=== PATIENT | male | born 1950 | race Caucasian/White ===

== ENCOUNTER 2017-08-26 11:13 | Emergency (ER) | payer MEDICARE, OTHER ==
[~2017-08-26] VITALS: Ht 182.9 cm; Wt 86.2 kg
[~2017-08-26 11:13] MED LIST: ACET-2267 PO; ASCO500C14; BENZ200C51 PO; CEFD300C3 PO; DOCU100T7; DOXY100C2 PO; FLAX340P; L.AC1CAP6 PO; LTN005OP2; PHEN95TA30; POLY15DR14 OU; VITA100C15
--- OUTSIDE RECORDS SUMMARY | 2017-08-26 11:24 | XMS REPORT | Clinical Summary ---
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 If you do not see the information that you expected, contact Release of Information in the Health Information Management department at [phone] for further assistance in locating additional records.[facility] Allergies Active Allergy Reactions Severity Noted Date Comments Egg EDEMA 08/05/2012 Fish Containing Products EDEMA 08/05/2012 Meperidine NAUSEA AND VOMITING High 08/08/2012 Milk SHORTNESS OF BREATH 08/05/2012 Unclassified Drug SEE COMMENTS, EDEMA Medium 07/19/2015 Aspertame causing swelling RED BEANS--THROAT SWELLING Oxycodone NAUSEA AND VOMITING Low 08/24/2015 Peanut EDEMA Medium 08/05/2012 Current Medications Prescription Sig. Disp. Refills Start End Date Status Date artificial Place 1 Drop into or Active tears/hypromellose around eye(s) as Needed. (ISOPTO TEARS) 0.5 % ophthalmic solution acetaminophen (TYLENOL) Take 1,000 mg by mouth as Active 500 mg tablet Needed. azithromycin (ZITHROMAX) Take 250 mg by mouth Active 250 mg tablet daily. Take 2 tabs by mouth on day 1, followed by 1 tab by mouth daily on days 2 - 5. Active Problems Problem Noted Date Screening for colon cancer 11/12/2016 Overview: Patient with family history of colon cancer. No recent colonscopy. L ast Assessment & Plan: Will refer to GI for colonoscopy. Allergy to food 01/13/2016 Overview: Onset in childhood to milk, egg, fish, shell fish, nuts, peanuts, red or white beans, artificial colors, sweeteners and flavors in the food. Swelling right side of face, swelling lips, tongue, lumps in throat, soreness, tightness, nasal congestion and in extreme cases shortness of breath Spontaneous resolution He has never used epinephrine For last few months unable to tolerate milk and eggs even in baked form SPT to foods today positive to egg white, fish mix, peanut, shell fish mix, brazil nut, cashew, hazelnut, pecan, pistachio and walnut Will continue to avoid all above foods and also cow's milk and almond (SPT -ve to these) Will order IgE ImmunoCAP to egg white, cow's milk, peanut, cod, tilapia, salmon, brazil nut, cashew, hazelnut, pecan, pistachio and walnut If IgE testing negative to cow's milk or almond, will proceed with oral food challenge in future Epi-pen prescribed and instructions given on use Hx of sx right parotid gland cyst in 1998 and feels it gets swollen with exposure to food, recommend he sees an ENT physician to assess for possible occlusion of salivary gland causing swelling as it does not appear to be an allergic manifestation. Seasonal allergic rhinitis due to pollen 01/13/2016 Overview: Seasonal, spring and fall SPT several decades ago with pollen allergies, also cats, dogs and horses Cannot tolerate anti-histamines (drowsiness) Gets either steroid shots or oral steroids by PCP in spring Intra-nasal steroids did not help in the past SPT to aeroallergen today positive to tree, grass, weed, mold, dust mite, dog and cat Will test IgE ImmunoCAP to horse Provided instructions on aero-allergen avoidance Pt to use flonase 2 sprays each nostril daily when symptomatic in spring/fall. History of asthma 01/13/2016 Overview: Mild intermittent based on hx Onset childhood, reports aeroallergen (specifically cats and horse exposure) or food induced symptoms Used albuterol in 2004 for short duration Good exercise tolerance Spirometry today with no obstructive disease, continue to monitor for now. 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 Will continue to monitor. 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 3 PPD. 11/18/15: coaptite injection 03/13/16: Back to 3 ppd with activity 03/23/16: coaptite ijection 05/01/16: Good results. Only one light pad per day 07/31/16: increasing incontinence, 1 heavy pad/day 11/02/16: Kegels while squatting showed good improvement. Down to one light pad per day at most. Very pleased L ast Assessment & Plan: Continue to perform Kegel exercises. Prostate cancer ([facility]) 08/05/2012 Overview: Formatting of this note may be different from the original. 05/20/12 PSA 5.78. In late 2011 it was 6.4 and it was 4.75 in 09/2010 Dr. Dickson TRUS Bx 06/25/12 Arina 3+4=7 in 5/14 cores (all left side), 50% tissue involved in one core. RALP with bilateral nerve sparing and bilateral lymph node dissection on 08/13/12 (Dr. Mariscal) Final pathology: Final Diagnosis: A. Lymph nodes, "right side pelvic lymph nodes", radical resection: Negative for malignancy in five lymph nodes (0/5). B. Lymph nodes, "left side pelvic lymph nodes", radical resection: Negative for malignancy in three lymph nodes (0/3). C. Prostate, prostatectomy: Prostatic adenocarcinoma, Arina grade 3 + 4 (Score=7), involving approximately 15% of the total tissue. See cancer case summary. Patient did have positive surgical margins. [facility] PSA Hx: Lab Results Component Value Date PSA 0.05 05/24/2017 PSA 0.06 11/02/2016 PSA 0.05 07/31/2016 PSA 0.03 03/13/2016 PSA 0.04 12/13/2015 PSA 0.04 07/19/2015 PSA 0.03 01/18/2015 PSA 0.02 07/20/2014 PSA 0.01 01/05/2014 PSA <0.01 07/07/2013 PSA <0.01 03/31/2013 PSA <0.01 12/30/2012 PSA <0.01 09/26/2012 L ast Assessment & Plan: RTC in 6mos with PSA Resolved Problems Problem Noted Date Resolved Date Alvares catheter status 08/19/2012 09/26/2012 Overview: RALP 08/13/12 Called complaining catheter not draining on morning of 08/19. L ast Assessment & Plan: 1. Catheter functioning normally. Patient needed reassurance only. 2. Flushed with 60cc, immediate return and drainage of clear urine. 3. RTC on for catheter removal. Family History Medical History Relation Name Comments Cancer Father Lung Back pain Other Cancer Other Lung and Prostate Diabetes Other Heart Disease Other Lung Disease Other Neck Pain Other Osteoporosis Other Relation Name Status Comments Father (Age 95) Mother (Age 92) Other Social History Tobacco Use Types Packs/Day Years Used Date Former Smoker 1 Smokeless Tobacco: Never Used Tobacco Cessation: Counseling Given: No Alcohol Use Drinks/Week oz/Week Comments Yes 1 Cans of 0.6 once weekly beer Sex Assigned at Date Recorded Not on file Last Filed Vital Signs Vital Sign Reading Time Taken Blood Pressure 123/56 05/24/2017 1:04 PM [employer]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 [employer] Pulse 79 05/24/2017 1:04 PM [employer] Temperature 36.3 C (97.3 F) 12/11/2016 1:20 PM CDT Respiratory Rate 14 01/20/2016 2:52 PM CDT Oxygen Saturation 100% 12/11/2016 1:20 PM CDT Inhaled Oxygen - - Concentration Weight 84.5 kg (186 lb 3.2 oz) 05/24/2017 1:04 PM [employer] Height 185.4 cm (6' 1") 05/24/2017 1:04 PM [employer]NA[employer] Body Mass Index 24.57 05/24/2017 1:04 PM [employer] Plan of Treatment Health Maintenance Due Date Last Done Comments HEPATITIS C SCREENING 1950 PHYSICAL (COMPREHENSIVE) 01/04/1956 EXAM PERTUSSIS VACCINE 01/04/1960 TETANUS VACCINE 1966 SHINGLES VACCINE 2009 ABDOMINAL AORTIC ANEURYSM 2014 SCREENING PREVNAR/PNEUMOVAX (#1) 2014 INFLUENZA VACCINE 01/21/2018 COLORECTAL CANCER 12/11/2026 12/11/2016, 12/11/2016 SCREENING Implants Implanted Type Area Relationship Consultant Device Expiration Model / Identifier Date Serial / Lot Scr Bn 4mm 1.5mm Matrixneuro SYNTHES:SYNTHES [id number] Implanted: Qty: 5 on 08/30/2015 by [place] .01 / Andrew Mak MD [id number] / [id number] Screw Bn Mtrxnro 5x1.5 Cmf Right: DEPUY [id number] Implanted: Qty: 1 on 08/30/2015 by Other (see . / Andrew Mak MD comment) [id number] / [id number] Gft Sft Tis 3x1in Drgn + Crnl Right: [employer] [id number] / Implanted: Qty: 1 on 08/30/2015 by Other (see LIFESCI:NEURO [id number] / Andrew Mak MD comment) [id number] [facility] [place] 24mm SYNTHES:SYNTHES 503.024 Implanted: Qty: 2 on 08/30/2015 by [facility] / Andrew Mak MD NA / NA Implant Injectable 1ml Coaptite N/A: [employer] 04/28/2018 890-300 / Syringe Bulking Agent Stress Bladder [id number] Implanted: Qty: 1 on 11/18/2015 by Azeem Bolanos MD [id number] Implant Injectable 1ml Coaptite N/A: [employer] 06/09/2018 890-300 / Syringe Bulking Agent Stress Bladder [id number] Implanted: Qty: 1 on 11/18/2015 by Azeem Bolanos MD [id number] Implant Injectable 1ml Coaptite N/A: [employer] 06/09/2018 890-300 / Syringe Bulking Agent Stress Bladder [id number] Implanted: Qty: 1 on 11/18/2015 by Azeem Bolanos MD [id number] Implant Injectable 1ml Coaptite N/A: [employer] 10/20/2016 890-300 / Syringe Bulking Agent Stress Bladder 890-300 / Implanted: Qty: 1 on 11/18/2015 by [id number] Azeem Mariscal MD Implant Injectable 1ml Coaptite [employer] 11/23/2018 [id number] Syringe Bulking Agent Stress 0 / Implanted: Qty: 1 on 03/23/2016 by Azeem Philippe MD [id number] Implant Injectable 1ml Coaptite [employer] 06/28/2018 [id number] Syringe Bulking Agent Stress 0 / Implanted: Qty: 1 on 03/23/2016 by Azeem Philippe MD [id number] Implant Injectable 1ml Coaptite [place] 11/23/2018 [id number] Syringe Bulking Agent Stress 0 / Implanted: Qty: 1 on 03/23/2016 by Azeem Philippe MD [id number] Results Not on filefrom Last 3 Months
--- OUTSIDE RECORDS SUMMARY | 2017-08-26 11:24 | XMS REPORT | Continuity of Care Document ---
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 Name Role Phone [employer] Unavailable Unavailable Problems Medications Allergies, Adverse Reactions, Alerts Immunizations Results Vital Signs Encounters Location Location Details Encounter Type Encounter Number Reason For Visit Attending Provider ADM Date DC Date Status Source OUTPATIENT [id number] SHEREE HERNANDEZ 11/02/20162016 Active [facility] OP SURGERY [id number] JAIRO KARIMI 12/11/2016 12/11/2016 Active [facility] OUTPATIENT [id number] SHEREE HERNANDEZ 05/24/20172017 Active [facility] OUTPATIENT [id number] 08/21/2017 Active [facility] O Active [facility] Procedures Plan of Care Social History Assessment and Plan Family History Advance Directives Functional Status
--- OUTSIDE RECORDS SUMMARY | 2017-08-26 11:24 | XMS REPORT | Continuity of Care Document ---
Author Author [facility] Organization [facility] Address Unknown Phone Unavailable Allergies Active Description Code Type Severity Reaction Onset Reported/Identified Relationship to Patient Clinical Status Yes aspirin [id number] Drug Allergy Unknown N/A 06/30/2009 Yes hydrocodone [id number] Drug Allergy Unknown N/A 06/30/2009 Yes codeine [id number] Drug Allergy Unknown N/A 09/16/2009 Yes codeine [id number] Drug Allergy Unknown STOMACH UPSET 05/28/2017 Yes aspartame [id number] Drug Allergy Mild N/A 05/29/2017 Yes uribe [id number] Drug Allergy Mild N/A 05/29/2017 Yes blue dye [id number] Drug Allergy Mild N/A 05/29/2017 Yes egg [id number] Drug Allergy Mild N/A 05/29/2017 Yes Fish Containing Products [id number] Drug Allergy Mild N/A 05/29/2017 Yes milk [id number] Drug Allergy Mild N/A 05/29/2017 Yes nut - unspecified [id number] Drug Allergy Mild N/A 05/29/2017 Yes saccharin [id number] Drug Allergy Mild N/A 05/29/2017 Yes sucralose [id number] Drug Allergy Mild N/A 05/29/2017 Yes yellow dye [id number] Drug Allergy Mild N/A 05/29/2017 Yes red dye [id number] Drug Allergy Unknown N/A 05/29/2017 Medications There is no data. Problems Date Dx Coded Attending Type Code Diagnosis Diagnosed By 11/09/2007 Ot 327.23 02/01/2008 Ot 327.23 06/15/2014 Ot 455.0 06/15/2014 Ot 455.3 06/15/2014 Ot V72.63 06/15/2014 Ot V74.8 06/15/2014 Ot 455.0 06/15/2014 Ot 455.3 06/15/2014 Ot 453.81 06/18/2014 Ot 786.7 08/10/2014 Ot 455.0 08/10/2014 Ot 455.3 08/10/2014 Ot V72.63 08/10/2014 Ot V74.8 08/10/2014 Ot 455.0 08/10/2014 Ot 455.3 08/10/2014 Ot 453.81 08/10/2014 Ot 786.7 09/11/2014 Ot 786.7 10/27/2014 Ot 455.0 10/27/2014 Ot 455.3 10/27/2014 Ot V72.63 10/27/2014 Ot V74.8 10/27/2014 Ot 455.0 10/27/2014 Ot 455.3 10/27/2014 Ot 453.81 10/27/2014 Ot 786.7 12/29/2014 RENAN SIDDIQI, STEPHEN R Ot 721.2 12/29/2014 RENAN SIDDIQI, STEPHEN R Ot 721.3 12/29/2014 RENAN SIDDIQI, STEPHEN R Ot 721.2 12/29/2014 RENAN SIDDIQI, STEPHEN R Ot 721.3 12/29/2014 RENAN SIDDIQI, STEPHEN R Ot 721.2 12/29/2014 RENAN SIDDIQI, STEPHEN R Ot 721.3 02/02/2015 RENAN SIDDIQI, STEPHEN R Ot 721.2 02/02/2015 RENAN SIDDIQI, STEPHEN R Ot 721.3 04/29/2015 Ot 784.2 04/29/2015 Ot 455.0 04/29/2015 Ot 455.3 04/29/2015 Ot V72.63 04/29/2015 Ot V74.8 04/29/2015 Ot 455.0 04/29/2015 Ot 455.3 04/29/2015 Ot 789.09 04/29/2015 Ot 453.81 04/29/2015 Ot 786.7 04/29/2015 RENAN SIDDIQI, STEPHEN R Ot 721.2 04/29/2015 RENAN SIDDIQI, STEPHEN R Ot 721.3 04/29/2015 RENAN SIDDIQI, STEPHEN R Ot 721.2 04/29/2015 RENAN SIDDIQI, STEPHEN R Ot 721.3 05/28/2017 RENAN SIDDIQI, STEPHEN R Ot 721.2 THORACIC SPONDYLOSIS 05/28/2017 RENAN SIDDIQI, STEPHEN R Ot 721.3 LUMBOSACRAL SPONDYLOSIS 05/29/2017 LANIE ANDREW MD, Ot J18.9 PNEUMONIA, UNSPECIFIED ORGANISM 05/29/2017 LANIE ANDREW MD, Ot J45.909 UNSPECIFIED ASTHMA, UNCOMPLICATED 05/29/2017 LANIE ANDREW MD, Ot K21.9 GASTRO-ESOPHAGEAL REFLUX DISEASE WITHOUT 05/29/2017 LANIE ANDREW MD, Ot Z85.46 PERSONAL HISTORY OF MALIGNANT NEOPLASM O 05/29/2017 LANIE ANDREW MD, Ot Z90.79 ACQUIRED ABSENCE OF OTHER GENITAL ORGAN( 05/31/2017 LANIE ANDREW MD, Ot A40.3 SEPSIS DUE TO STREPTOCOCCUS PNEUMONIAE 05/31/2017 LANIE ANDREW MD, Ot J13 PNEUMONIA DUE TO STREPTOCOCCUS PNEUMONIA 05/31/2017 LANIE ANDREW MD, Ot J45.909 UNSPECIFIED ASTHMA, UNCOMPLICATED 05/31/2017 LANIE ANDREW MD, Ot K21.9 GASTRO-ESOPHAGEAL REFLUX DISEASE WITHOUT 05/31/2017 LANIE ANDREW MD, Ot R73.9 HYPERGLYCEMIA, UNSPECIFIED 05/31/2017 LANIE ANDREW MD, Ot Z85.46 PERSONAL HISTORY OF MALIGNANT NEOPLASM O 05/31/2017 LANIE ANDREW MD, Ot Z90.79 ACQUIRED ABSENCE OF OTHER GENITAL ORGAN( Procedures There is no data. Results Test Result Range Blood CBC with ordered manual differential panel - 05/28/17 14:57 Blood leukocytes automated count (number/volume) 16.4 10*3/uL 4.3-11.0 Blood erythrocytes automated count (number/volume) 4.22 10*6/uL 4.35-5.85 Venous blood hemoglobin measurement (mass/volume) 13.5 g/dL 13.3-17.7 Blood hematocrit (volume fraction) 39 % 40-54 Automated erythrocyte mean corpuscular volume 93 [foz_us] 80-99 Automated erythrocyte mean corpuscular hemoglobin (mass per erythrocyte) 32 pg 25-34 Automated erythrocyte mean corpuscular hemoglobin concentration measurement ( mass/volume) 34 g/dL 32-36 Automated erythrocyte distribution width ratio 12.1 % 10.0-14.5 Automated blood platelet count (count/volume) 409 10*3/uL 130-400 Automated blood platelet mean volume measurement 12.2 [foz_us] 7.4-10.4 Automated blood neutrophils/100 leukocytes 78 % 42-75 Automated blood lymphocytes/100 leukocytes 10 % 12-44 Blood monocytes/100 leukocytes 6 % NRG Automated blood eosinophils/100 leukocytes 1 % 0-10 Automated blood basophils/100 leukocytes 0 % 0-10 Blood neutrophils automated count (number/volume) 12.7 10*3 1.8-7.8 Blood lymphocytes automated count (number/volume) 1.6 10*3 1.0-4.0 Blood monocytes automated count (number/volume) 2.0 10*3 0.0-1.0 Automated eosinophil count 0.1 10*3/uL 0.0-0.3 Automated blood basophil count (count/volume) 0.0 10*3/uL 0.0-0.1 Manual blood segmented neutrophils/100 leukocytes 82 % NRG Blood band neutrophils/100 leukocytes 0 % NRG Manual blood lymphocytes/100 leukocytes 12 % NRG Manual eosinophils/100 leukocytes in nose 0 % NRG Manual blood basophils/100 leukocytes 0 % NRG Blood erythrocyte morphology finding identification NORMAL NRG PT panel in platelet poor plasma by coagulation assay - 05/28/17 14:57 Prothrombin time (PT) in platelet poor plasma by coagulation assay 13.7 s 12.2-14.7 INR in platelet poor plasma or blood by coagulation assay 1.0 0.8-1.4 Activated partial thromboplastin time (aPTT) in platelet poor plasma bycoagulation assay - 05/28/17 14:57 Activated partial thromboplastin time (aPTT) in platelet poor plasma bycoagulation assay 34 s 24-35 Blood lactic acid measurement (moles/volume) - 05/28/17 14:57 Blood lactic acid measurement (moles/volume) 1.18 mmol/L 0.50-2.00 Comprehensive metabolic panel - 05/28/17 14:57 Serum or plasma sodium measurement (moles/volume) 138 mmol/L 135-145 Serum or plasma potassium measurement (moles/volume) 4.1 mmol/L 3.6-5.0 Serum or plasma chloride measurement (moles/volume) 101 mmol/L 98-107 Carbon dioxide 24 mmol/L 21-32 Serum or plasma anion gap determination (moles/volume) 13 mmol/L 5-14 Serum or plasma urea nitrogen measurement (mass/volume) 14 mg/dL 7-18 Serum or plasma creatinine measurement (mass/volume) 1.20 mg/dL 0.60-1.30 Serum or plasma urea nitrogen/creatinine mass ratio 12 NRG Serum or plasma creatinine measurement with calculation of estimated glomerular filtration rate 60 NRG Serum or plasma glucose measurement (mass/volume) 118 mg/dL 70-105 Serum or plasma calcium measurement (mass/volume) 9.4 mg/dL 8.5-10.1 Serum or plasma total bilirubin measurement (mass/volume) 0.8 mg/dL 0.1-1.0 Serum or plasma alkaline phosphatase measurement (enzymatic activity/volume) 94 U/L 40-136 Serum or plasma aspartate aminotransferase measurement (enzymatic activity/ volume) 25 U/L 5-34 Serum or plasma alanine aminotransferase measurement (enzymatic activity/volume ) 26 U/L 0-55 Serum or plasma protein measurement (mass/volume) 8.1 g/dL 6.4-8.2 Serum or plasma albumin measurement (mass/volume) 4.1 g/dL 3.2-4.5 Magnesium - 05/28/17 14:57 Magnesium 2.3 mg/dL 1.8-2.4 Serum or plasma creatine kinase measurement (enzymatic activity/volume) - 05/28 14:57 Serum or plasma creatine kinase measurement (enzymatic activity/volume) 60 U/L 30-200 Serum or plasma creatine kinase MB measurement (enzymatic activity/volume) - 14:57 Serum or plasma creatine kinase MB measurement (enzymatic activity/volume) 1.0 ng/mL <6.6 Serum or plasma troponin i.cardiac measurement (mass/volume) - 05/28/17 14:57 Serum or plasma troponin i.cardiac measurement (mass/volume) < ng/ mL <0.30 Serum or plasma lithium measurement (moles/volume) - 05/28/17 14:57 BNP level 24.1 pg/mL <100.0 Bacterial blood culture - 05/28/17 14:57 FREE TEXT EXTERNAL GROWTH OF STREPTOCOCCUS PNEUMONIAE [facility] QUANTITY OF GROWTH Isolated [facility] Bacterial blood culture [id number] [facility] FREE TEXT ENTRY [address] ANDREW 05/29 12:15 BY [facility] FREE TEXT ENTRY 3 Shabana INGRAM [facility] Influenza virus A and B antigen detection - 05/28/17 15:46 FLU RESULT NEGATIVE FOR INFLUENZA A AND B ANTIGENS BY IA [facility] Bacterial blood culture - 05/28/17 16:06 FREE TEXT EXTERNAL GROWTH OF STREPTOCOCCUS PNEUMONIAE [facility] QUANTITY OF GROWTH Isolated [facility] Bacterial blood culture [id number] [facility] FREE TEXT ENTRY [address] ANDREW 05/29 12:15 BY [facility] FREE TEXT ENTRY 3 Shabana INGRAM [facility] Whole blood basic metabolic panel - 05/28/17 19:35 Serum or plasma sodium measurement (moles/volume) 135 mmol/L 135-145 Serum or plasma potassium measurement (moles/volume) 4.4 mmol/L 3.6-5.0 Serum or plasma chloride measurement (moles/volume) 102 mmol/L 98-107 Carbon dioxide 21 mmol/L 21-32 Serum or plasma anion gap determination (moles/volume) 12 mmol/L 5-14 Serum or plasma urea nitrogen measurement (mass/volume) 16 mg/dL 7-18 Serum or plasma creatinine measurement (mass/volume) 1.28 mg/dL 0.60-1.30 Serum or plasma urea nitrogen/creatinine mass ratio 13 [facility] Serum or plasma creatinine measurement with calculation of estimated glomerular filtration rate 56 [facility] Serum or plasma glucose measurement (mass/volume) 294 mg/dL 70-105 Serum or plasma calcium measurement (mass/volume) 8.8 mg/dL 8.5-10.1 Complete blood count (CBC) with automated white blood cell (WBC) differential - 05/29/17 06:48 Blood leukocytes automated count (number/volume) 18.4 10*3/uL 4.3-11.0 Blood erythrocytes automated count (number/volume) 3.96 10*6/uL 4.35-5.85 Venous blood hemoglobin measurement (mass/volume) 12.5 g/dL 13.3-17.7 Blood hematocrit (volume fraction) 37 % 40-54 Automated erythrocyte mean corpuscular volume 92 [foz_us] 80-99 Automated erythrocyte mean corpuscular hemoglobin (mass per erythrocyte) 32 pg 25-34 Automated erythrocyte mean corpuscular hemoglobin concentration measurement ( mass/volume) 34 g/dL 32-36 Automated erythrocyte distribution width ratio 11.8 % 10.0-14.5 Automated blood platelet count (count/volume) 326 10*3/uL 130-400 Automated blood platelet mean volume measurement 12.1 [foz_us] 7.4-10.4 Automated blood neutrophils/100 leukocytes 89 % 42-75 Automated blood lymphocytes/100 leukocytes 5 % 12-44 Blood monocytes/100 leukocytes 6 % 0-12 Automated blood eosinophils/100 leukocytes 0 % 0-10 Automated blood basophils/100 leukocytes 0 % 0-10 Blood neutrophils automated count (number/volume) 16.4 10*3 1.8-7.8 Blood lymphocytes automated count (number/volume) 0.9 10*3 1.0-4.0 Blood monocytes automated count (number/volume) 1.1 10*3 0.0-1.0 Automated eosinophil count 0.0 10*3/uL 0.0-0.3 Automated blood basophil count (count/volume) 0.0 10*3/uL 0.0-0.1 Comprehensive metabolic panel - 05/29/17 06:48 Serum or plasma sodium measurement (moles/volume) 133 mmol/L 135-145 Serum or plasma potassium measurement (moles/volume) 3.7 mmol/L 3.6-5.0 Serum or plasma chloride measurement (moles/volume) 103 mmol/L 98-107 Carbon dioxide 18 mmol/L 21-32 Serum or plasma anion gap determination (moles/volume) 12 mmol/L 5-14 Serum or plasma urea nitrogen measurement (mass/volume) 16 mg/dL 7-18 Serum or plasma creatinine measurement (mass/volume) 1.22 mg/dL 0.60-1.30 Serum or plasma urea nitrogen/creatinine mass ratio 13 NRG Serum or plasma creatinine measurement with calculation of estimated glomerular filtration rate 59 NRG Serum or plasma glucose measurement (mass/volume) 376 mg/dL 70-105 Serum or plasma calcium measurement (mass/volume) 9.4 mg/dL 8.5-10.1 Serum or plasma total bilirubin measurement (mass/volume) 0.6 mg/dL 0.1-1.0 Serum or plasma alkaline phosphatase measurement (enzymatic activity/volume) 97 U/L 40-136 Serum or plasma aspartate aminotransferase measurement (enzymatic activity/ volume) 34 U/L 5-34 Serum or plasma alanine aminotransferase measurement (enzymatic activity/volume ) 43 U/L 0-55 Serum or plasma protein measurement (mass/volume) 7.1 g/dL 6.4-8.2 Serum or plasma albumin measurement (mass/volume) 3.7 g/dL 3.2-4.5 Whole blood basic metabolic panel - 05/30/17 09:04 Serum or plasma sodium measurement (moles/volume) 136 mmol/L 135-145 Serum or plasma potassium measurement (moles/volume) 4.6 mmol/L 3.6-5.0 Serum or plasma chloride measurement (moles/volume) 106 mmol/L 98-107 Carbon dioxide 18 mmol/L 21-32 Serum or plasma anion gap determination (moles/volume) 12 mmol/L 5-14 Serum or plasma urea nitrogen measurement (mass/volume) 23 mg/dL 7-18 Serum or plasma creatinine measurement (mass/volume) 1.20 mg/dL 0.60-1.30 Serum or plasma urea nitrogen/creatinine mass ratio 19 NRG Serum or plasma creatinine measurement with calculation of estimated glomerular filtration rate 60 NRG Serum or plasma glucose measurement (mass/volume) 313 mg/dL 70-105 Serum or plasma calcium measurement (mass/volume) 9.0 mg/dL 8.5-10.1 Serum or plasma troponin i.cardiac measurement (mass/volume) - 05/30/17 09:04 Serum or plasma troponin i.cardiac measurement (mass/volume) < ng/ mL <0.30 Complete blood count (CBC) with automated white blood cell (WBC) differential - 05/30/17 09:04 Blood leukocytes automated count (number/volume) 31.5 10*3/uL 4.3-11.0 Blood erythrocytes automated count (number/volume) 3.55 10*6/uL 4.35-5.85 Venous blood hemoglobin measurement (mass/volume) 11.4 g/dL 13.3-17.7 Blood hematocrit (volume fraction) 33 % 40-54 Automated erythrocyte mean corpuscular volume 92 [foz_us] 80-99 Automated erythrocyte mean corpuscular hemoglobin (mass per erythrocyte) 32 pg 25-34 Automated erythrocyte mean corpuscular hemoglobin concentration measurement ( mass/volume) 35 g/dL 32-36 Automated erythrocyte distribution width ratio 12.1 % 10.0-14.5 Automated blood platelet count (count/volume) 399 10*3/uL 130-400 Automated blood platelet mean volume measurement 12.3 [foz_us] 7.4-10.4 Automated blood neutrophils/100 leukocytes 90 % 42-75 Automated blood lymphocytes/100 leukocytes 4 % 12-44 Blood monocytes/100 leukocytes 7 % 0-12 Automated blood eosinophils/100 leukocytes 0 % 0-10 Automated blood basophils/100 leukocytes 0 % 0-10 Blood neutrophils automated count (number/volume) 28.3 10*3 1.8-7.8 Blood lymphocytes automated count (number/volume) 1.1 10*3 1.0-4.0 Blood monocytes automated count (number/volume) 2.1 10*3 0.0-1.0 Automated eosinophil count 0.0 10*3/uL 0.0-0.3 Automated blood basophil count (count/volume) 0.0 10*3/uL 0.0-0.1 Blood manual differential performed detection - 05/30/17 09:04 Blood monocytes/100 leukocytes 4 % NRG Manual blood segmented neutrophils/100 leukocytes 95 % NRG Manual blood lymphocytes/100 leukocytes 1 % NRG Blood erythrocyte morphology finding identification NORMAL NRG Complete blood count (CBC) with automated white blood cell (WBC) differential - 05/31/17 06:18 Blood leukocytes automated count (number/volume) 20.9 10*3/uL 4.3-11.0 Blood erythrocytes automated count (number/volume) 3.50 10*6/uL 4.35-5.85 Venous blood hemoglobin measurement (mass/volume) 11.1 g/dL 13.3-17.7 Blood hematocrit (volume fraction) 33 % 40-54 Automated erythrocyte mean corpuscular volume 93 [foz_us] 80-99 Automated erythrocyte mean corpuscular hemoglobin (mass per erythrocyte) 32 pg 25-34 Automated erythrocyte mean corpuscular hemoglobin concentration measurement ( mass/volume) 34 g/dL 32-36 Automated erythrocyte distribution width ratio 12.3 % 10.0-14.5 Automated blood platelet count (count/volume) 382 10*3/uL 130-400 Automated blood platelet mean volume measurement 11.6 [foz_us] 7.4-10.4 Automated blood neutrophils/100 leukocytes 79 % 42-75 Automated blood lymphocytes/100 leukocytes 11 % 12-44 Blood monocytes/100 leukocytes 9 % 0-12 Automated blood eosinophils/100 leukocytes 0 % 0-10 Automated blood basophils/100 leukocytes 0 % 0-10 Blood neutrophils automated count (number/volume) 16.6 10*3 1.8-7.8 Blood lymphocytes automated count (number/volume) 2.3 10*3 1.0-4.0 Blood monocytes automated count (number/volume) 2.0 10*3 0.0-1.0 Automated eosinophil count 0.0 10*3/uL 0.0-0.3 Automated blood basophil count (count/volume) 0.0 10*3/uL 0.0-0.1 Whole blood basic metabolic panel - 05/31/17 06:18 Serum or plasma sodium measurement (moles/volume) 138 mmol/L 135-145 Serum or plasma potassium measurement (moles/volume) 3.9 mmol/L 3.6-5.0 Serum or plasma chloride measurement (moles/volume) 109 mmol/L 98-107 Carbon dioxide 20 mmol/L 21-32 Serum or plasma anion gap determination (moles/volume) 9 mmol/L 5-14 Serum or plasma urea nitrogen measurement (mass/volume) 22 mg/dL 7-18 Serum or plasma creatinine measurement (mass/volume) 1.01 mg/dL 0.60-1.30 Serum or plasma urea nitrogen/creatinine mass ratio 22 NRG Serum or plasma creatinine measurement with calculation of estimated glomerular filtration rate > NRG Serum or plasma glucose measurement (mass/volume) 130 mg/dL 70-105 Serum or plasma calcium measurement (mass/volume) 8.9 mg/dL 8.5-10.1 Encounters ACCT No. Visit Date/Time Discharge Status Pt. Type Provider Facility Loc./Unit Complaint [id number] 05/28/2017 17:06:00 05/31/2017 19:00:00 DIS Inpatient LORRIE SIDDIQI, LANIE Ulrich [facility] 4TH PNEUMONIA-FAILURE OF OUTPT THERAPY [id number] 10/27/2014 09:47:00 10/27/2014 23:59:59 CLS Outpatient RENAN SIDDIQI, STEPHEN Rooney [facility] RAD SPINIAL SURVEY [id number] 04/29/2015 11:57:00 Document Registration [id number] 08/10/2014 13:09:00 Document Registration [id number] 08/10/2014 13:08:00 Document Registration [id number] 07/12/2012 11:32:00 Document Registration [id number] 06/22/2011 17:16:00 Document Registration [id number] 09/16/2009 05:51:00 Document Registration [id number] 09/10/2009 09:52:00 Document Registration [id number] 01/31/2008 19:31:00 Document Registration [id number] 11/08/2007 20:08:00 Document Registration [id number] 09/15/2005 15:12:00 Document Registration
--- NOTE | 2017-08-26 14:19 | Diagnostic Imaging Report ---
PROCEDURE: US right lower extremity venous. TECHNIQUE: Multiple real-time grayscale images were obtained over the right lower extremity in various projections. Additional duplex Doppler and color Doppler images were also obtained. INDICATION: Right leg pain, right knee and calf pain. Fall 2 months ago. COMPARISON: None FINDINGS: The right common femoral vein, femoral vein, deep femoral vein, and popliteal vein are normal in appearance. These vessels show normal compressibility, color flow and doppler augmentation. The visualized deep calf veins demonstrate no distinct intraluminal thrombus. IMPRESSION: 1. No sonographic evidence of deep venous thrombosis in the right lower extremity. Dictated by: Dictated on workstation # [id number]
--- NOTE | 2017-08-26 14:47 | ED Lower Extremity ---
General Chief Complaint: Lower Extremity Stated Complaint: R LEG SWELLING,POSS BLOOD CLOT Nursing Triage Note: pt injured right knee in june. he has been wearing a knee brace. also wears compression hose to prevent swelling. swelling worsened since sunday. he is concerned he has a blood clot. he has not had knee evaluated, so would possibly like to xray it also. Nursing Sepsis Screen: No Definite Risk History of Present Illness Date Seen by Provider: August 26, 2017 Time Seen by Provider: 14:00 Initial Comments 67-year-old male presents for right knee pain, swelling in his right lower extremity and concerns over blood clot. He reports that in June of this year he sustained a flexed knee injury falling on his right knee. Since then he' s been wearing a knee brace. He has chronic history of swelling in his lower extremities and wears support stockings on a regular basis. He had to car trips in the last 2 days traveling approximately 4 hours each day. He denies any paresthesias or radicular symptoms in his lower extremities. Pain/Injury Location: right knee Method of Injury: fell Allergies and Home Medications Allergies Coded Allergies: Fish Containing Products (Unverified Allergy, Mild, 05/29/17) LUMPS IN THROAT aspartame (Unverified Allergy, Mild, 05/29/17) LUMPS IN THROAT uribe (Unverified Allergy, Mild, 05/29/17) LUMPS IN THROAT blue dye (Unverified Allergy, Mild, 05/29/17) LUMPS IN THROAT egg (Unverified Allergy, Mild, 05/29/17) LUMPS IN THROAT milk (Unverified Allergy, Mild, 05/29/17) LUMPS IN THROAT nut - unspecified (Unverified Allergy, Mild, 05/29/17) LUMPS IN THROAT saccharin (Unverified Allergy, Mild, 05/29/17) LUMPS IN THROAT sucralose (Unverified Allergy, Mild, 05/29/17) LUMPS IN THROAT yellow dye (Unverified Allergy, Mild, 05/29/17) LUMPS IN THROAT aspirin (Verified Allergy, Unknown, 06/30/09) hydrocodone (Verified Allergy, Unknown, 06/30/09) red dye (Unverified Allergy, Unknown, 05/29/17) LUMPS IN THROAT codeine (Verified Adverse Reaction, Unknown, STOMACH UPSET, 05/28/17) STOM UPSET Home Medications Acetaminophen 500 Mg Tablet, 500-1,000 MG PO Q6H PRN for PAIN-MILD, (Reported) Benzonatate 200 Mg Capsule, 200 MG PO TID PRN for COUGH, (Reported) Cefdinir 300 Mg Capsule, 300 MG PO BID Prescribed by: LANIE ANDREW on 05/31/17 1333 L.acidoph & ParacaseSyeda reeder.lactis 1 Each Capsule, 1 CAP PO DAILY, (Reported) Polyvinyl Alcohol/Povidone 15 Ml Drops, 1-2 DROPS OU TID PRN for DRY EYES, ( Reported) Patient Home Medication List Home Medication List Reviewed: Yes Constitutional: no symptoms reported, see HPI Musculoskeletal: see HPI, joint pain (right knee), muscle pain (right calf) All Other Systems Reviewed Negative Unless Noted: Yes Past Ejyxtvy-Ymeckf-Gjbpom Hx Past Med/Social Hx: Reviewed Nursing Past Med/Soc Hx Patient Social History Recent Foreign Travel: No Contact w/Someone Who Travel: No Recent Infectious Disease Expo: No Recent Hopitalizations: Yes Past Medical History Surgeries: Yes Abdominal, Neurological, Prostatectomy, Rectal Respiratory: Yes Asthma Cardiac: No Neurological: Yes (BENIGN BRAIN TUMOR) Reproductive Disorders: No Sexually Transmitted Disease: No Genitourinary: Yes (PROSTATE REMOVED FOR CANCER IN 2012) Prostate Problems Gastrointestinal: Yes Gastroesophageal Reflux Musculoskeletal: No Endocrine: No HEENT: No Cancer: Yes Prostate Did You Recieve Any Treatments: Yes What Type of Treatment Did You: Surgical Intervention Psychosocial: Yes Integumentary: No Blood Disorders: Yes Family Medical History No Pertinent Family Hx Physical Exam Vital Signs Vital Signs - First Documented 08/26/17 11:55 Temp 97.9 Pulse 60 Resp 16 B/P (MAP) 132/70 (90) Pulse Ox 96 O2 Delivery Room Air Capillary Refill : Less Than 3 Seconds General Appearance: WD/WN, no apparent distress Cardiovascular: normal peripheral pulses, regular rate, rhythm Respiratory: chest non-tender, lungs clear, normal breath sounds Knees: right knee non-tender, right knee normal range of motion, right knee joint effusion (trace), right knee soft tissue tenderness, right knee other ( negative Lockman, negative anterior and posterior drawer, no medial or lateral instability.) Neurologic/Tendon: normal sensation, normal motor functions, normal tendon functions, other (negative Homans) Neurologic/Psychiatric: no motor/sensory deficits, alert, normal mood/affect, oriented x 3 Progress/Results/Core Measures Results/Orders My Orders Orders - ESTEFANI NARVAEZ Knee, Right, 3 Views (08/26/17 14:55) Vital Signs/I&O 08/26/17 08/26/17 11:55 15:53 Temp 97.9 Pulse 60 77 Resp 16 18 B/P (MAP) 132/70 (90) 154/79 Pulse Ox 96 98 O2 Delivery Room Air Room Air Blood Pressure Mean: 90 Diagnostic Imaging Diagonstic Imaging: Ultrasound Plain Films/CT/US/NM/MRI: leg Comments [facility]IA [facility] [place], [place] NAME: FERNANDO SANTA [facility] REC#: [id number] PT STATUS: REG ER : 1950 PHYSICIAN: DANIELLE HAGEN MD ADMIT DATE: 08/26/17/ER Draft Date of Exam:08/26/17 US VENOUS LOWER EXT RT PROCEDURE: US right lower extremity venous. TECHNIQUE: Multiple real-time grayscale images were obtained over the right lower extremity in various projections. Additional duplex Doppler and color Doppler images were also obtained. INDICATION: Right leg pain, right knee and calf pain. Fall 2 months ago. COMPARISON: None FINDINGS: The right common femoral vein, femoral vein, deep femoral vein, and popliteal vein are normal in appearance. These vessels show normal compressibility, color flow and doppler augmentation. The visualized deep calf veins demonstrate no distinct intraluminal thrombus. IMPRESSION: 1. No sonographic evidence of deep venous thrombosis in the right lower extremity. Dictated on workstation # [id number] Dict: 08/26/17 1416 Trans: 08/26/17 1419 [id number] Interpreted by: ROSALBA DAO MD Electronically signed by: Reviewed: Reviewed by Me Diagonstic Imaging: Xray Plain Films/CT/US/NM/MRI: knee Comments NAME: FERNANDO SANTA MED REC#: [id number] PT STATUS: REG ER : 1950 PHYSICIAN: ESTEFANI NARVAEZ ADMIT DATE: 08/26/17/ER Draft Date of Exam:08/26/17 KNEE, RIGHT, 3 VIEWS PATIENT HISTORY: Right knee pain after injury. TECHNIQUE: Three views of the right knee. COMPARISON: None. FINDINGS: No acute fracture or dislocation is seen in the right knee. Alignment appears normal. The joint spaces are mildly decreased. There is ossification at the medial femoral condyle which may be from remote medial collateral ligament injury. No significant joint effusion is seen. IMPRESSION: No acute osseous abnormality is seen in the right knee. Dictated on workstation # [id number] Dict: 08/26/17 1533 Trans: 08/26/17 1539 [id number] Interpreted by: ROSALBA DAO MD Electronically signed by: Reviewed: Reviewed by Me Departure Impression Primary Impression: Right knee pain Qualified Codes: M25.561 - Pain in right knee Disposition: HOME, SELF-CARE Condition: Stable Departure-Patient Inst. Decision time for Depature: 15:30 Referrals: STEPHEN URRUTIA MD (PCP/Family) Primary Care Physician Patient Instructions: Knee Sprain (DC) Add. Discharge Instructions: Apply ice to right knee 20 minutes every 2 hours while awake. Use your support hose and knee brace as needed. Follow-up with orthopedics either with Dr. Ramírez in [place] or Ortho [address] [place] [address] in [place], if symptoms are not improving. When traveling for more than one to 2 hours in the car, stopped frequently to get out of walk for 5 minutes, wiggle toes, move ankle up and down every 20 minutes. Elevate right knee higher than the heart when the ankle and foot are swelling. You may take ibuprofen 600 mg alternating with Tylenol 650 mg every 4 hours for pain Return to the emergency department for new urgent health care problems. All discharge instructions reviewed with patient and/or family. Voiced understanding. Copy Copies To 1: STEPHEN URRUTIA MD, AMY ARNP August 26, 2017 14:47
--- NOTE | 2017-08-26 15:39 | Diagnostic Imaging Report ---
PATIENT HISTORY: Right knee pain after injury. TECHNIQUE: Three views of the right knee. COMPARISON: None. FINDINGS: No acute fracture or dislocation is seen in the right knee. Alignment appears normal. The joint spaces are mildly decreased. There is ossification at the medial femoral condyle which may be from remote medial collateral ligament injury. No significant joint effusion is seen. IMPRESSION: No acute osseous abnormality is seen in the right knee. Dictated by: Dictated on workstation # [id number]
[2017-08-26 15:53] VITALS: BP 154/79
== END 2017-08-26 15:53 | disposition home or self-care (01) ==
LOC: EDUNIT# 11:13 → ER 11:15
DX: M25.561 Pain in right knee (principal); J45.909 Unspecified asthma, uncomplicated; K21.9 Gastro-esophageal reflux disease without esophagitis; Z86.011 Personal history of benign neoplasm of the brain; Z85.46 Personal history of malignant neoplasm of prostate; Z90.79 Acquired absence of other genital organ(s); Z92.21 Personal history of antineoplastic chemotherapy; Z88.5 Allergy status to narcotic agent; Z88.6 Allergy status to analgesic agent; Z91.048 Other nonmedicinal substance allergy status; Z88.8 Allergy status to other drugs, medicaments and biological substances
CPT/HCPCS: 73562

== ENCOUNTER → 2020-03-26 | Outpatient (CLI) | payer MEDICARE, OTHER ==
[2020-03-26 17:56] LABS: CHLORIDE 105 MMOL/L (98-107); POTASSIUM 3.8 MMOL/L (3.6-5.0); SODIUM 141 MMOL/L (135-145)
[2020-03-26 17:57] LABS: CALCIUM 8.6 MG/DL (8.5-10.1)
[2020-03-26 17:58] LABS: GLUCOSE 121 MG/DL (70-105)
[2020-03-26 17:59] LABS: CARBON DIOXIDE 27 MMOL/L (21-32)
[2020-03-26 18:01] LABS: CREATININE SERUM 1.04 MG/DL (0.60-1.30); GFR ESTIMATED > 60
[2020-03-26 18:02] LABS: BUN/CREATININE RATIO 13
== END ==
LOC: LAB 17:26
PROVIDERS: ATTEND Family Medicine
DX: M54.9 Dorsalgia, unspecified (principal); R07.81 Pleurodynia
CPT/HCPCS: 36415; 80048

== ENCOUNTER → 2020-03-29 | Outpatient (CLI) | payer MEDICARE, OTHER ==
[~2020-03-29] MED LIST changes: +CATHETER FLUSH 10 ML SYR IV PRN; +HOLD METFORMIN - RECEIVED CONTRAST 20 ML VIAL IV SCH; +IOHEXOL 350 MG/ML 100 ML (OMNIPAQUE 350) VIAL IV ONE; +NS 100 ML (IVPB) BAG IV ONE
--- NOTE | 2020-03-29 20:27 | Diagnostic Imaging Report ---
PROCEDURE: CT chest, abdomen, and pelvis with contrast. TECHNIQUE: Multiple contiguous axial images were obtained through the chest, abdomen, and pelvis after the administration of intravenous contrast. Auto Exposure Controls were utilized during the CT exam to meet ALARA standards for radiation dose reduction. INDICATION: Back pain. History of prostate cancer. CORRELATION with CT of the abdomen from June 22, 2011. FINDINGS: The lungs demonstrate no evidence of focal pulmonary infiltrate or consolidation. There is no effusion. There is no pneumothorax. There is no suspicious pulmonary nodule or mass. The thoracic aorta demonstrates no dissection or aneurysm. There are mild coronary calcifications. There is no pericardial collection. Central pulmonary arteries unremarkable on this nondedicated exam. There are calcifications demonstrated within the dome of the liver which are unchanged compared to 2012. The liver demonstrates no additional abnormality. There are operative changes of cholecystectomy. There is no abnormal biliary dilatation. Pancreas is markedly atrophic without focal abnormality. The spleen is normal in size. There is no adrenal mass. The kidneys enhance normally and are nonobstructed. Small and large bowel normal in caliber without obstruction or abnormal bowel thickening. There are few diverticula but no findings of diverticulitis. The appendix is visualized and is normal. There is no abdominal or pelvic free fluid or adenopathy demonstrated. Urinary bladder nondistended. There are operative changes of a prior prostatectomy. There is no evidence by CT of a recurrent mass within the surgical bed. The abdominal aorta demonstrates atherosclerotic disease but no evidence of aneurysm. There are arthritic changes present at both of the hips. There are no sclerotic lesions evident within the pelvis. There are degenerative endplate changes and endplate Schmorl's nodes within the spine but no suspicious sclerotic lesions. There is a fracture of the posterior right 11th rib which appears to be remote. No acute rib fractures are evident or evidence of a marrow replacing lesion. IMPRESSION: 1. No CT evidence of an acute inflammatory process within the abdomen or pelvis. 2. No obstructive process within the abdomen or pelvis. 3. Operative changes of previous cholecystectomy and prostatectomy. 4. No recurrent mass within the prostate bed. 5. No findings of adenopathy. 6. No suspicious osseous lesions. A right posterior 11th rib fracture by CT appears to be remote. There are degenerative endplate changes present throughout the spine as well as arthritic changes at both of the hips. Dictated by: Dictated on workstation # [id number]
== END ==
LOC: RAD 17:33
PROVIDERS: ATTEND Family Medicine
DX: M47.816 Spondylosis without myelopathy or radiculopathy, lumbar region (principal); M16.0 Bilateral primary osteoarthritis of hip; S22.31XA Fracture of one rib, right side, initial encounter for closed fracture; X58.XXXA Exposure to other specified factors, initial encounter
CPT/HCPCS: 71260; 74177

== ENCOUNTER → 2022-11-27 | Outpatient (CLI) | payer MEDICARE, OTHER ==
[~2022-11-27] MED LIST changes: -CATHETER FLUSH 10 ML SYR IV PRN; -DOXY100C2 PO; +DOXY100C5 PO; -HOLD METFORMIN - RECEIVED CONTRAST 20 ML VIAL IV SCH; -IOHEXOL 350 MG/ML 100 ML (OMNIPAQUE 350) VIAL IV ONE; -NS 100 ML (IVPB) BAG IV ONE
[2022-11-27 11:51] LABS: CREATININE SERUM 1.31 MG/DL (0.60-1.30)
--- NOTE | 2022-11-27 14:26 | Diagnostic Imaging Report ---
PROCEDURE: CT abdomen and pelvis without contrast. TECHNIQUE: Multiple contiguous axial images were obtained through the abdomen and pelvis without the use of intravenous contrast. Auto Exposure Controls were utilized during the CT exam to meet ALARA standards for radiation dose reduction. INDICATION: Epigastric pain and right upper quadrant pain. FINDINGS: The lung bases are clear. There are benign-appearing calcifications in the dome of the right lobe of the liver. Gallbladder is surgically absent. There is no biliary ductal dilatation. Pancreas is atrophic. The spleen is unremarkable. No adrenal mass is identified. Kidneys are unremarkable. No calculi are seen. There is no hydronephrosis. Aorta is calcified but nonaneurysmal. There are postop changes with midline abdominal sutures. There is oral contrast throughout small and large bowel loops. No free fluid or fluid collection is identified. Bladder is decompressed. Prostate is surgically absent. No inflammatory changes are identified. Appendix is unremarkable. IMPRESSION: Essentially unremarkable noncontrast CT of the abdomen and pelvis. No acute abnormality is detected. Dictated by: Dictated on workstation # [id number]
--- NOTE | 2022-11-29 17:32 | HISTORY AND PHYSICAL ---
EGD HISTORY AND PHYSICAL HISTORY OF PRESENT ILLNESS: The patient is a 72-year-old white male seen for initial patient evaluation. He reports a roughly 2-month history of burning epigastric pain associated with almost 30-pound weight loss. He denies associated dysphagia. He did go to urgent care and was given omeprazole 40 mg daily as well as Carafate 1 g before meals and at bedtime, which she reports have only been partially beneficial starting about 2 weeks ago. He still is having significant burning, especially in the evening. He reports a past history of bleeding peptic ulcers in his 20's. At that point, he had vagus nerve ligation. He had not required anything other than p.r.n. antacid up until several months ago. There have been no medications up until pantoprazole and Carafate were initiated roughly 2 weeks ago. He had blood work done at that time in urgent care that revealed mild anemia with a hemoglobin of 12.4 and MCV of 99. His eosinophil count was mildly elevated at 13.6. Differential was otherwise unremarkable. White count was normal at 7000 with a platelet count of 171,000. His chemistry panel was normal and iron level was normal at 82 with a ferritin of 69.6. He denies bright red blood per rectum or melena. PAST MEDICAL HISTORY: Significant for prostate cancer diagnosed in 2013. 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 PAST SURGICAL HISTORY: Significant for cholecystectomy and vasectomy in the past. 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 He has had what sounds like possible Warthin tumor or an adenoma removed from the right parotid. He has had chronic swelling since the procedure 20 years ago, which he reports it has not changed. This was done by Dr. Perez. SOCIAL HISTORY: The patient is retired. No past smoking history. No significant alcohol intake. FAMILY HISTORY: Father at the age of 95 and was a smoker. Mother at the age of 93 of kidney failure. Has one sister with diverticulitis living, has a brother with bladder cancer and skin cancer, not melanoma. I believe, both in their 70's as well. PHYSICAL EXAMINATION: GENERAL: Reveals a pleasant, articulate white male who appears to be in no acute distress. VITAL SIGNS: Weight is 177 pounds, 6 feet 1 inch tall, blood pressure 112/64, heart rate 70 and regular. HEENT: Unremarkable except for some mild pallor. Sclerae are nonicteric. He does have fluctuant enlargement over the right parotid, nontender. No adenopathy noted. Neck revealed no JVD, adenopathy or bruits. Oral cavity, unremarkable. CHEST: Clear to auscultation. CARDIOVASCULAR: Reveals regular rate and rhythm without significant murmur, S3 or S4. ABDOMEN: Soft, supple without mass or organomegaly. She does have epigastric tenderness to palpation without rebound or guarding. EXTREMITIES: Revealed no cyanosis, clubbing or edema. SKIN: Evaluation reveals no suspicious nevi. ASSESSMENT AND PLAN: 1. Refractory reflux with significant weight loss and past history of bleeding peptic ulcer disease. He was told at this time to add Gaviscon to his pantoprazole and he is set up for an EGD evaluation on the of this month. Further recommendations pending evaluation. 2. 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 Continued conservative monitoring. 3. Prostate cancer, now 5 years out from salvage radiation therapy after initial prostatectomy. He continues to follow at . He reports his last colonoscopy was unremarkable, he believes in 2016. We will have the patient follow up in 1 month with further recommendations pending EGD evaluation on Sunday. 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
== END ==
LOC: RAD 11:45
PROVIDERS: ATTEND Nurse Practitioner Family
DX: N39.498 Other specified urinary incontinence (principal); K29.00 Acute gastritis without bleeding; K21.00 Gastro-esophageal reflux disease with esophagitis, without bleeding; R70.0 Elevated erythrocyte sedimentation rate
CPT/HCPCS: 36415; 74176; 82565

== ENCOUNTER 2022-11-30 09:52 | Outpatient (CLI) | payer MEDICARE, OTHER ==
[~2022-11-30] VITALS: Ht 185.4 cm; Wt 80.3 kg
[2022-11-30] MEDS ORDERED: SUCR1TAB PO (11:12)
[2022-11-30] MEDS ORDERED: PANT40TA52 PO (11:12)
[2022-11-30] MEDS ORDERED: MAGN1TAB31 PO (11:12)
== END 2022-11-30 11:20 | disposition home or self-care (01) ==
LOC: PREOP 09:52
PROVIDERS: ATTEND Internal Medicine
DX: Z01.818 Encounter for other preprocedural examination (principal)

== ENCOUNTER 2022-12-01 08:01 | Day surgery (SDC) | payer MEDICARE, OTHER ==
[~2022-12-01] VITALS: Ht 185.4 cm; Wt 80.3 kg
[~2022-12-01 08:01] MED LIST changes: +MAGN1TAB31 PO; +PANT40TA52 PO; +SUCR1TAB PO
[2022-12-01] MEDS ORDERED: LACTATED RINGERS 1,000 ML IV STA (08:02)
[2022-12-01] MEDS ORDERED: HURRICAINE EXT TUBE (BENZOCAINE) XX PRN (08:15)
[2022-12-01 08:21] VITALS: BP 119/78
[2022-12-01] MEDS ORDERED: PROPOFOL INJECTION 50 ML IV ONE (09:05)
--- NOTE | 2022-12-01 09:07 | Pre-Op Note & Conscious Sedat ---
Pre-Operative Progress Note Date H&P Reviewed: Dec 01, 2022 Time H&P Reviewed: 09:06 History & Physical: H&P Reviewed, Patient Examed, No changes noted Pre-Op Diagnosis: refractory Gerd with weight loss Moderate Sedation PreProcedure ASA Score 2 Airway Lungs Heart ASA score ASA 1: a normal healthy patient ASA 2: a patient with a mild systemic disease (mid diabetes, controlled hypertension, obesity ASA 3: a patient with a severe systemic disease that limits activity (angina, COPD, prior Myocardial infarction) ASA 4: a patient with an incapacitating disease that is a constant threat to life (CHF, renal failure) ASA 5: a moribund patient not expected to survive 24 hrs. (ruptured aneurysm) ASA 6: a declared brain- patient whose organs are being harvested. For emergent operations, add the letter E after the classification Mallampati Classification Grade 1 Sedation Plan Analgesia, Amnesia, Plan communicated to team members, Discussed options with patient/fam, Discussed risks with patient/fam The patient is an appropriate candidate to undergo the planned procedure, sedation, and anesthesia. The patient immediately re-assessed prior to indication. MAHNAZ VILLAGRAN MD Dec 01, 2022 09:07
--- NOTE | 2022-12-01 09:22 | Anesthesia-General Post-Op ---
MAC Patient Condition Mental Status/LOC: Same as Preop Cardiovascular: Satisfactory Nausea/Vomiting: Absent Respiratory: Satisfactory Pain: Controlled Complications: Absent Post Op Complications Complications None Follow Up Care/Instructions Patient Instructions None needed. Anesthesiology Discharge Order Discharge Order Patient is doing well, no complaints, stable vital signs, no apparent adverse anesthesia problems. No complications reported per nursing. VIJAYA KAYE CRNA Dec 01, 2022 09:22
[2022-12-01 09:25] VITALS: BP 97/53
--- NOTE | 2022-12-01 09:26 | Progress Note-Post Operative ---
Post-Procedure Note Physician (s)/Food General Manager (s) Physician MAHNAZ VILLAGRAN MD Pre-Procedure Diagnosis Pre-Procedure Diagnosis: refractory Gerd with weight loss Post-Procedure Diagnosis Post-operative diagnosis: The patient was placed in the left lateral decubitus position. The endoscope was inserted into the oral cavity and under direct visualization the esophagus is intubated. The endoscope is passed down the esophagus to stomach and the second portion of the duodenum. A careful inspection was made as the endoscope was withdrawn. Findings: None The posterior pharynx epiglottis arytenoid aperture and true and false vocal folds were unremarkable to visual inspection. Proximal mid and distal esophagus were unremarkable as well. Biopsies from the Z-line and midesophagus were obtained for evaluation for eosinophilic esophagitis. No evidence for obstruction was noted. Bilious fluid was noted in the fundus of the stomach. The the cardia was unremarkable there is no evidence for hiatal hernia. The fundus was unremarkable. There appears to be partial antrectomy involving portion of the of the duodenal bulb as well with no evidence for ulceration there is a beefy red color noted in the antrum compatible with alkaline bile reflux biopsies were obtained and submitted for histopathology. The second portion of the small intestine is unremarkable with no evidence for ulceration erythema with normal-appearing villous architecture. A/P 1. Antral erythema compatible with alkaline bile reflux with what appears to be postsurgical changes of an antrectomy with no evidence for peptic ulcer disease and no evidence for erosive esophagitis or hiatal hernia formation. Will await histopathology from above biopsies with likely trial of Actigall. Will discontinue Carafate. MAHNAZ VILLAGRAN MD Dec 01, 2022 09:26
[2022-12-01 09:30] VITALS: BP 99/56
[2022-12-01 10:05] VITALS: BP 106/52
[2022-12-01 10:45] VITALS: BP 106/52
--- NOTE | 2022-12-04 13:03 | HISTORY AND PHYSICAL ---
EGD HISTORY AND PHYSICAL HISTORY OF PRESENT ILLNESS: The patient is a 72-year-old white male seen for initial patient evaluation. He reports a roughly 2-month history of burning epigastric pain associated with almost 30-pound weight loss. He denies associated dysphagia. He did go to urgent care and was given omeprazole 40 mg daily as well as Carafate 1 g before meals and at bedtime, which she reports have only been partially beneficial starting about 2 weeks ago. He still is having significant burning, especially in the evening. He reports a past history of bleeding peptic ulcers in his 20's. At that point, he had vagus nerve ligation. He had not required anything other than p.r.n. antacid up until several months ago. There have been no medications up until pantoprazole and Carafate were initiated roughly 2 weeks ago. He had blood work done at that time in urgent care that revealed mild anemia with a hemoglobin of 12.4 and MCV of 99. His eosinophil count was mildly elevated at 13.6. Differential was otherwise unremarkable. White count was normal at 7000 with a platelet count of 171,000. His chemistry panel was normal and iron level was normal at 82 with a ferritin of 69.6. He denies bright red blood per rectum or melena. PAST MEDICAL HISTORY: Significant for prostate cancer diagnosed in 2013. 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 PAST SURGICAL HISTORY: Significant for cholecystectomy and vasectomy in the past. 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 He has had what sounds like possible Warthin tumor or an adenoma removed from the right parotid. He has had chronic swelling since the procedure 20 years ago, which he reports it has not changed. This was done by Dr. Perez. SOCIAL HISTORY: The patient is retired. No past smoking history. No significant alcohol intake. FAMILY HISTORY: Father at the age of 95 and was a smoker. Mother at the age of 93 of kidney failure. Has one sister with diverticulitis living, has a brother with bladder cancer and skin cancer, not melanoma. I believe, both in their 70's as well. PHYSICAL EXAMINATION: GENERAL: Reveals a pleasant, articulate white male who appears to be in no acute distress. VITAL SIGNS: Weight is 177 pounds, 6 feet 1 inch tall, blood pressure 112/64, heart rate 70 and regular. HEENT: Unremarkable except for some mild pallor. Sclerae are nonicteric. He does have fluctuant enlargement over the right parotid, nontender. No adenopathy noted. Neck revealed no JVD, adenopathy or bruits. Oral cavity, unremarkable. CHEST: Clear to auscultation. CARDIOVASCULAR: Reveals regular rate and rhythm without significant murmur, S3 or S4. ABDOMEN: Soft, supple without mass or organomegaly. She does have epigastric tenderness to palpation without rebound or guarding. EXTREMITIES: Revealed no cyanosis, clubbing or edema. SKIN: Evaluation reveals no suspicious nevi. ASSESSMENT AND PLAN: 1. Refractory reflux with significant weight loss and past history of bleeding peptic ulcer disease. He was told at this time to add Gaviscon to his pantoprazole and he is set up for an EGD evaluation on the of this month. Further recommendations pending evaluation. 2. 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 Continued conservative monitoring. 3. Prostate cancer, now 5 years out from salvage radiation therapy after initial prostatectomy. He continues to follow at . He reports his last colonoscopy was unremarkable, he believes in 2016. We will have the patient follow up in 1 month with further recommendations pending EGD evaluation on Sunday. Job ID: [id number] DocumentID: [id number] Dictated Date: 11/29/2022 17:03:53 [employer]day Babysitter Date: 11/29/2022 17:29:00 Dictated By: MAHNAZ VILLAGRAN MD <Dictated by MAHNAZ VILLAGRAN MD> <Electronically signed by MAHNAZ VILLAGRAN MD> 12/01/22 [id number] [facility]
== END 2022-12-01 10:45 | disposition home or self-care (01) ==
LOC: ENDO 08:01
PROVIDERS: ATTEND Internal Medicine
DX: K31.89 Other diseases of stomach and duodenum (principal); K21.00 Gastro-esophageal reflux disease with esophagitis, without bleeding; R63.4 Abnormal weight loss; Z87.11 Personal history of peptic ulcer disease
CPT/HCPCS: 88305